=== PATIENT | female | born 1950 | race African-American/Black ===

== ENCOUNTER 2018-09-30 20:04 | Inpatient (IN) | payer OTHER ==
[2018-09-30 20:44] VITALS: BMI 18.4
--- NOTE | 2018-09-30 21:38 | HP ---
COWS - Scale Resting Pulse: 1= MS 81-100 Sweatin=Flushed/Facial Moisture Restless Observation: 0= Sits Still Pupil Size: 0= Normal to Room Light Bone or Joint Aches: 4=Acute Joint/Muscle Pain Runny Nose/ Eye Tearin= Runny Nose/Eyes GI Upset > 30mins: 2= Nausea/Diarrhea (diarrhea x 3) Tremor Observation: 2= Slight Tremor Visible Yawning Observation: 0= None Anxiety or Irritability: 4=Extreme Anxiety Goose Flesh Skin: 0=Smooth Skin COWS Score: 17 CIWA Score Nausea/Vomitin-Mild Nausea/No Vomiting Muscle Tremors: 3 Anxiety: 3 Agitation: 3 Paroxysmal Sweats: 3 Orientation: 2-Disoriented Date<2 days Tacttile Disturbances: 0-None Auditory Disturbances: 0-None Visual Disturbances: 0-None Headache: 2-Mild CIWA-Ar Total Score: 17 - Admission Criteria OASAS Guidelines: Admission for Medically Managed Detox: Requires at least one of the followin. CIWA greater than 12 2. Seizures within the past 24 hours 3. Delirium tremens within the past 24 hours 4. Hallucinations within the past 24 hours 5. Acute intervention needed for co occurring medical disorder 6. Acute intervention needed for co occurring psychiatric disorder 7. Severe withdrawal that cannot be handled at a lower level of care (continued vomiting, continued diarrhea, abnormal vital signs) requiring intravenous medication and/or fluids 8. Admission ROS [facility] Chief Complaint: Heroin and alcohol withdrawal symptoms Allergies/Adverse Reactions: Allergies Allergy/AdvReac Type Severity Reaction Status Date / Time No Known Allergies Allergy Verified 09/30/18 21:09 History of Present Illness: 68 years old female with over 50 years of alcohol and heroin dependence is seeking admission to detox. Patient reports that she has been in multiple detox , last at [facility]. This is her first detox and first admission at [facility]. She has medical history of hypertension, COPD, Asthma, rheumatoid arthritis, anemia, epilepsy, bronchitis and emphysema. She has Psych. history of Bipolar and depression. She denies suicide attempt and suicidal ideation at this time. Patient reports blackout from alcohol use. Exam Limitations: No Limitations - Ebola screening Have you traveled outside of the country in the last 21 days: No (N) Have you had contact with anyone from an Ebola affected area: No Do you have a fever: No - Review of Systems Constitutional: Chills, Malaise, Weakness EENT: reports: Sinus Pressure Respiratory: reports: No Symptoms reported Cardiac: reports: No Symptoms Reported GI: reports: Diarrhea, Poor Appetite, Poor Fluid Intake, Abdominal cramping : reports: No Symptoms Reported Musculoskeletal: reports: Back Pain, Muscle Pain Integumentary: reports: Dryness, Flushing Neuro: reports: Headache, Tremors Endocrine: reports: No Symptoms Reported Hematology: reports: Anemia Psychiatric: reports: Mood/Affect Appropiate, Agitated, Anxious Other Systems: Reviewed and Negative Patient History - Patient Medical History Hx Anemia: Yes Hx Asthma: Yes (Albuterol) Hx Chronic Obstructive Pulmonary Disease (COPD): Yes (Bronchitis, Emphysema - Advair) Hx Cancer: No Hx Cardiac Disorders: No Hx Congestive Heart Failure: No Hx Hypertension: Yes (not on medication) Hx Hypercholesterolemia: No Hx Pacemaker: No HX Cerebrovascular Accident: No Hx Seizures: Yes (Epilepsy, last episode on 09/29/2015) Hx Dementia: No Hx Diabetes: No Hx Gastrointestinal Disorders: No Hx Liver Disease: No Hx Genitourinary Disorders: No Hx Sexually Transmitted Disorders: No Hx Renal Disease (ESRD): No Hx Thyroid Disease: No Hx Human Immunodeficiency Virus (HIV): No (Negative 2015 . Reports her from AIDS) Hx Hepatitis C: No Hx Depression: Yes (None) Hx Suicide Attempt: No (Denies suicidal ideation at this time) Hx Bipolar Disorder: Yes (Not on medic ation) Hx Schizophrenia: No Other Medical History: rheumathoid athritis - not on medication - Patient Surgical History Past Surgical History: No Hx Neurologic Surgery: No Hx Cataract Extraction: No Hx Cardiac Surgery: No Hx Lung Surgery: No Hx Breast Surgery: No Hx Breast Biopsy: No Hx Abdominal Surgery: No Hx Appendectomy: No Hx Cholecystectomy: No Hx Genitourinary Surgery: No Hx Section: No Hx Orthopedic Surgery: No Anesthesia Reaction: No - PPD History Previous Implant?: Yes Documented Results: Negative w/o proof Implanted On Prior R Admission?: No PPD to be Administered?: Yes - Reproductive History Patient is a Female of Child Bearing Age (11 -55 yrs old): Yes LMP comment: MENOPAUSAL Patient : No - Smoking Cessation Smoking history: Current every day smoker Have you smoked in the past 12 months: Yes Aproximately how many cigarettes per day: 4 Hx Chewing Tobacco Use: No Initiated information on smoking cessation: Yes 'Breaking Loose' booklet given: 09/30/18 - Substance & Tx. History Hx Alcohol Use: Yes Hx Substance Use: Yes Substance Use Type: Alcohol, Cocaine, Heroin, Marijuana, Opiates Hx Substance Use Treatment: Yes ([facility]) - Substances abused Alcohol Substance route: Oral Frequency: Daily Amount used: beer- 2 six pack Age of first use: 18 Date of last use: 09/30/18 Heroin Substance route: Inhalation Frequency: Daily Amount used: 3 bags Age of first use: 15 Date of last use: 09/30/18 Marijuana/Hashish Substance route: Smoking Frequency: Daily Amount used: 4 bags Age of first use: 15 Date of last use: 09/29/18 Admission Physical Exam [facility] - Vital Signs Vital Signs: Vital Signs - 24 hr 09/30/18 20:41 Temperature 98.6 F Pulse Rate 82 Respiratory 17 Rate Blood Pressure 108/76 - Diagnostic (1) Hypertension Current Visit: Yes Status: Chronic Qualifiers: Hypertension type: essential hypertension Qualified Code(s): I10 - Essential (primary) hypertension (2) COPD (chronic obstructive pulmonary disease) Current Visit: Yes Status: Acute Qualifiers: Chronic bronchitis type: unspecified (3) Asthma Current Visit: Yes Status: Chronic (4) Anemia Current Visit: Yes Status: Acute Qualifiers: Anemia type: iron deficiency (5) Epilepsy as late effect of cerebrovascular accident (CVA) Current Visit: Yes Status: Chronic (6) Emphysema with chronic bronchitis Current Visit: Yes Status: Chronic (7) Opioid dependence with withdrawal Current Visit: Yes Status: Acute (8) Alcohol dependence with uncomplicated withdrawal Current Visit: Yes Status: Acute (9) Nicotine dependence Current Visit: Yes Status: Acute Qualifiers: Nicotine product type: cigarettes Substance use status: uncomplicated Qualified Code(s): F17.210 - Nicotine dependence, cigarettes, uncomplicated (10) Rheumatoid arthritis Current Visit: Yes Status: Chronic Qualifiers: Laterality: unspecified laterality Cleared for Admission S - Detox or Rehab [facility] Level of Care: Medically Managed Detox Regimen/Protocol: Methadone/Librium Breathalyzer - Breathalyzer Breathalyzer: 0.020 Urine Drug Screen - Test Device Lot number: [id number] Expiration date: 05/04/20 - Control Is test valid?: Yes - Results Drug screen NEGATIVE: No Urine drug screen results: THC-Marijuana, RAJESH-Cocaine, FEN-Fentanyl, MOP-Opiates Inpatient Rehab Admission - Rehab Decision to Admit Inpatient rehab admission?: No
[2018-09-30] MEDS ORDERED: ACETAMINOPHEN 325 MG TABLET (FP) PO PRN ×2 (21:56)
[2018-09-30] MEDS ORDERED: MAG HYDROX/AL HYDROX/SIMETH 30 ML UNIT-DOSE CUP PO PRN (21:56)
[2018-09-30] MEDS ORDERED: hydrOXYzine PAMOATE 25 MG CAPSULE (FP) PO PRN (21:56)
[2018-09-30] MEDS ORDERED: BISMUTH SUBSALICYLATE 524 MG/30 ML UD PO PRN (21:56)
[2018-09-30] MEDS ORDERED: MENTHOL/PHENOL 1 EACH UD MM PRN (21:56)
[2018-09-30] MEDS ORDERED: MAGNESIUM CITRATE 300 ML BOTTLE PO PRN (21:56)
[2018-09-30] MEDS ORDERED: MAGNESIUM HYDROX 2400MG/30ML ORAL SUSPENSION 30 ML CUP PO PRN (21:56)
[2018-09-30] MEDS ORDERED: IBUPROFEN 400 MG TABLET (FP) PO PRN (21:56)
[2018-09-30] MEDS ORDERED: NICOTINE POLACRILEX 2 MG GUM BUC PRN (21:56)
[2018-09-30] MEDS ORDERED: chlordiazePOXIDE HCL 25 MG CAPSULE PO PRN (21:56)
[2018-09-30] MEDS ORDERED: MELATONIN 5 MG TABLETS PO PRN (21:56)
[2018-09-30] MEDS ORDERED: cloNIDine HCL 0.1 MG TABLET PO PRN (22:02)
[2018-09-30] MEDS ORDERED: METHADONE HCL 10 MG TABLET (FOR DETOX USE ONLY) PO ONE (23:00)
[2018-09-30] MEDS: chlordiazePOXIDE HCL 25 MG CAPSULE PO SCH (23:39)
[2018-09-30] MEDS: THIAMINE HCL 100 MG TABLET (FP) PO SCH (23:40)
[2018-10-01] MEDS: chlordiazePOXIDE HCL 25 MG CAPSULE PO SCH ×4 (05:57→22:20)
[2018-10-01] MEDS ORDERED: METHADONE HCL 10 MG TABLET (FOR DETOX USE ONLY) PO ONE (10:00)
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
[2018-10-01 10:07] LABS: HEMATOCRIT 37.3 % (32.4-45.2); HEMOGLOBIN 12.8 GM/dL (10.7-15.3); MCH 32.8 pg (25.7-33.7); MCHC 34.3 g/dl (32.0-36.0); MEAN CELL VOLUME 95.7 fl (80-96); MEAN PLT VOLUME 6.6 fl (7.5-11.1); PLATELET COUNT 311 K/MM3 (134-434); RBC 3.89 M/mm3 (3.60-5.2); RDW 13.1 % (11.6-15.6); WHITE BLOOD COUNT 4.2 K/mm3 (4.0-10.0)
[2018-10-01 10:11] LABS: ALBUMIN 3.2 g/dl (3.4-5.0); ALK PHOS 168 U/L (45-117); ANION GAP 6 MMOL/L (8-16); BILIRUBIN,TOTAL 0.3 mg/dL (0.2-1); BLOOD UREA NITROGEN 11 mg/dL (7-18); CHLORIDE 98 mmol/L (98-107); CO2 28 mmol/L (21-32); CREATININE 0.6 mg/dL (0.55-1.3); GLUCOSE,RANDOM 87 mg/dL (74-106); POTASSIUM 4.4 mmol/L (3.5-5.1); SGOT/AST 36 U/L (15-37); SGPT/ALT 35 U/L (13-61); SODIUM 131 mmol/L (136-145)
[2018-10-01] MEDS: ALBUTEROL SO4 8 GM HFA INHALER IH SCH ×4 (10:36→20:18)
[2018-10-01] MEDS: PRENATAL VITAMINS W/ FOLIC ACID TABLET (FP) PO SCH (10:37)
[2018-10-01] MEDS: ASPIRIN 81 MG CHEWABLE TABLETS PO SCH (10:37)
[2018-10-01] MEDS: LISINOPRIL 10 MG TABLET (FP) PO SCH (10:37)
[2018-10-01] MEDS: NICOTINE 14 MG/24 HOURS TOPICAL PATCH TD SCH (10:37)
[2018-10-01] MEDS: BUDESONIDE/FORMETEROL FUMARATE 80/4.5 mcg INHALER IH SCH ×2 (12:04→22:18)
--- NOTE | 2018-10-01 12:22 | PN ---
[facility] CIWA - CIWA Score Nausea/Vomitin-No Nausea/No Vomiting Muscle Tremors: 4-Moderate,w/Arms Extend Anxiety: 4-Mod. Anxious/Guarded Agitation: 3 Paroxysmal Sweats: 3 Orientation: 0-Oriented Tacttile Disturbances: 0-None Auditory Disturbances: 0-None Visual Disturbances: 0-None Headache: 0-None Present CIWA-Ar Total Score: 14 BHS COWS - Scale Resting Pulse: 0= ID 80 or Below Sweatin= Chills/Flushing Restless Observation: 1= Difficult to Sit Still Pupil Size: 0= Normal to Room Light Bone or Joint Aches: 2= Severe Diffuse Aches Runny Nose/ Eye Tearin= Nasal Congestion GI Upset > 30mins: 0= None Tremor Observation of Outstretched Hands: 2= Slight Tremor Visible Yawning Observation: 2= >3x During Session Anxiety or Irritability: 2=Irritable/Anxious Goose Flesh Skin: 0=Smooth Skin COWS Score: 11 S Progress Note (SOAP) Subjective: sweats shakes interrupted sleep body aches agitation Objective: 10/01/18 12:22 Vital Signs Temperature 98.0 F 10/01/18 09:19 Pulse Rate 70 10/01/18 09:19 Respiratory Rate 18 10/01/18 09:19 Blood Pressure 106/54 L 10/01/18 09:19 O2 Sat by Pulse Oximetry (%) Laboratory Tests 10/01/18 10/01/18 10/01/18 07:00 07:00 07:00 WBC 4.2 RBC 3.89 Hgb 12.8 Hct 37.3 MCV 95.7 MCH 32.8 MCHC 34.3 RDW 13.1 Plt Count 311 MPV 6.6 L Sodium 131 L Potassium 4.4 Chloride 98 Carbon Dioxide 28 Anion Gap 6 L BUN 11 Creatinine 0.6 Creat Clearance w eGFR 99.42 Random Glucose 87 Calcium 9.0 Total Bilirubin 0.3 AST 36 ALT 35 Alkaline Phosphatase 168 H Total Protein 7.0 Albumin 3.2 L RPR Titer Nonreactive aaox3 ambulating no acute distress Assessment: 10/01/18 12:22 withdrawal sx Plan: continue detox increase fluids
[2018-10-01] MEDS: METHOCARBAMOL 500 MG TABLET PO PRN (13:28)
[2018-10-01] MEDS: THIAMINE HCL 100 MG TABLET (FP) PO SCH (22:19)
[2018-10-02] MEDS: chlordiazePOXIDE HCL 25 MG CAPSULE PO SCH ×3 (05:25→17:08)
[2018-10-02] MEDS: METHOCARBAMOL 500 MG TABLET PO PRN (05:27)
[2018-10-02] MEDS: ALBUTEROL SO4 8 GM HFA INHALER IH SCH ×4 (07:43→21:59)
--- NOTE | 2018-10-02 08:33 | EKG ---
Test Reason : Blood Pressure : / mmHG Vent. Rate : 073 BPM Atrial Rate : 073 BPM P-R Int : 176 ms QRS Dur : 076 ms QT Int : 394 ms P-R-T Axes : 071 064 070 degrees QTc Int : 434 ms POOR DATA QUALITY, INTERPRETATION MAY BE ADVERSELY AFFECTED NORMAL SINUS RHYTHM MINIMAL VOLTAGE CRITERIA FOR LVH, MAY BE NORMAL VARIANT BORDERLINE ECG NO PREVIOUS ECGS AVAILABLE Confirmed by MD ANTHONY, COURTNEY ([id number]) on 10/02/2018 8:32:54 AM Referred By: Confirmed By:COURTNEY CRUZ MD
[2018-10-02] MEDS ORDERED: METHADONE HCL 10 MG TABLET (FOR DETOX USE ONLY) PO ONE (10:00)
[2018-10-02] MEDS: ASPIRIN 81 MG CHEWABLE TABLETS PO SCH (10:22)
[2018-10-02] MEDS: LISINOPRIL 10 MG TABLET (FP) PO SCH (10:22)
[2018-10-02] MEDS: PRENATAL VITAMINS W/ FOLIC ACID TABLET (FP) PO SCH (10:23)
[2018-10-02] MEDS: BUDESONIDE/FORMETEROL FUMARATE 80/4.5 mcg INHALER IH SCH ×2 (10:23→21:59)
[2018-10-02] MEDS: NICOTINE 14 MG/24 HOURS TOPICAL PATCH TD SCH (10:23)
[2018-10-02] MEDS ORDERED: BACLOFEN 10 MG TABLET (FP) PO ONE (10:45)
--- NOTE | 2018-10-02 12:10 | PN ---
[facility] CIWA - CIWA Score Nausea/Vomitin-No Nausea/No Vomiting Muscle Tremors: 3 Anxiety: 3 Agitation: 3 Paroxysmal Sweats: 2 Orientation: 0-Oriented Tacttile Disturbances: 0-None Auditory Disturbances: 0-None Visual Disturbances: 0-None Headache: 0-None Present CIWA-Ar Total Score: 11 S COWS - Scale Resting Pulse: 0= MD 80 or Below Sweatin= Chills/Flushing Restless Observation: 1= Difficult to Sit Still Pupil Size: 0= Normal to Room Light Bone or Joint Aches: 2= Severe Diffuse Aches Runny Nose/ Eye Tearin= None GI Upset > 30mins: 0= None Tremor Observation of Outstretched Hands: 1= Tremor [place], Not Seen Yawning Observation: 1= 1-2x During Session Anxiety or Irritability: 1=Feels Anxious/Irritable Goose Flesh Skin: 0=Smooth Skin COWS Score: 7 S Progress Note (SOAP) Subjective: muscle cramping sweats body aches interrupted sleep Objective: 10/02/18 12:09 Vital Signs Temperature 96.9 F L 10/02/18 10:30 Pulse Rate 72 10/02/18 10:30 Respiratory Rate 18 10/02/18 10:30 Blood Pressure 100/53 L 10/02/18 10:30 O2 Sat by Pulse Oximetry (%) Laboratory Tests 09/30/18 10/01/18 10/01/18 20:45 07:00 07:00 WBC 4.2 RBC 3.89 Hgb 12.8 Hct 37.3 MCV 95.7 MCH 32.8 MCHC 34.3 RDW 13.1 Plt Count 311 MPV 6.6 L Sodium 131 L Potassium 4.4 Chloride 98 Carbon Dioxide 28 Anion Gap 6 L BUN 11 Creatinine 0.6 Creat Clearance w eGFR 99.42 Random Glucose 87 Calcium 9.0 Total Bilirubin 0.3 AST 36 ALT 35 Alkaline Phosphatase 168 H Total Protein 7.0 Albumin 3.2 L POC Urine HCG, Qual Negative RPR Titer 10/01/18 07:00 WBC RBC Hgb Hct MCV MCH MCHC RDW Plt Count MPV Sodium Potassium Chloride Carbon Dioxide Anion Gap BUN Creatinine Creat Clearance w eGFR Random Glucose Calcium Total Bilirubin AST ALT Alkaline Phosphatase Total Protein Albumin POC Urine HCG, Qual RPR Titer Nonreactive aaox3 ambulating no acute distress Assessment: 10/02/18 12:10 withdrawal sx Plan: continue detox increase fluids baclofen tid motrin prn
[2018-10-02] MEDS: BACLOFEN 10 MG TABLET (FP) PO SCH ×2 (14:45→22:00)
[2018-10-02] MEDS: chlordiazePOXIDE HCL 10 MG CAPSULE PO SCH (22:00)
[2018-10-02] MEDS: THIAMINE HCL 100 MG TABLET (FP) PO SCH (22:00)
[2018-10-02] MEDS ORDERED: chlordiazePOXIDE HCL 10 MG CAPSULE PO PRN (23:00)
[2018-10-03] MEDS: BACLOFEN 10 MG TABLET (FP) PO SCH ×3 (06:06→22:23)
[2018-10-03] MEDS: chlordiazePOXIDE HCL 10 MG CAPSULE PO SCH ×3 (06:06→16:56)
[2018-10-03] MEDS: ALBUTEROL SO4 8 GM HFA INHALER IH SCH ×4 (09:19→22:23)
[2018-10-03] MEDS ORDERED: METHADONE HCL 10 MG TABLET (FOR DETOX USE ONLY) PO ONE (10:00)
[2018-10-03] MEDS ORDERED: LIDOCAINE 5% TOPICAL PATCH TP ONE (10:09)
[2018-10-03] MEDS: PRENATAL VITAMINS W/ FOLIC ACID TABLET (FP) PO SCH (10:10)
[2018-10-03] MEDS: BUDESONIDE/FORMETEROL FUMARATE 80/4.5 mcg INHALER IH SCH ×2 (10:10→22:23)
[2018-10-03] MEDS: ASPIRIN 81 MG CHEWABLE TABLETS PO SCH (10:10)
[2018-10-03] MEDS: NICOTINE 14 MG/24 HOURS TOPICAL PATCH TD SCH (10:12)
[2018-10-03] MEDS: LISINOPRIL 10 MG TABLET (FP) PO SCH (10:12)
[2018-10-03] MEDS: IBUPROFEN 400 MG TABLET (FP) PO PRN ×2 (10:39→22:24)
[2018-10-03] MEDS: LIDOCAINE PATCH REMOVAL MC SCH (22:23)
[2018-10-03] MEDS: THIAMINE HCL 100 MG TABLET (FP) PO SCH (22:24)
[2018-10-03] MEDS ORDERED: chlordiazePOXIDE HCL 10 MG CAPSULE PO SCH (23:00)
[2018-10-04] MEDS ORDERED: METHADONE HCL 5 MG TABLET (FOR DETOX USE ONLY) PO ONE (06:00)
[2018-10-04] MEDS: BACLOFEN 10 MG TABLET (FP) PO SCH (06:07)
[2018-10-04] MEDS: ALBUTEROL SO4 8 GM HFA INHALER IH SCH ×4 (07:44→21:15)
[2018-10-04] MEDS: PRENATAL VITAMINS W/ FOLIC ACID TABLET (FP) PO SCH (09:55)
[2018-10-04] MEDS: ASPIRIN 81 MG CHEWABLE TABLETS PO SCH (09:55)
[2018-10-04] MEDS: LIDOCAINE 5% TOPICAL PATCH TP SCH (09:55)
[2018-10-04] MEDS: LISINOPRIL 10 MG TABLET (FP) PO SCH (09:56)
[2018-10-04] MEDS: BUDESONIDE/FORMETEROL FUMARATE 80/4.5 mcg INHALER IH SCH ×2 (09:56→22:01)
[2018-10-04] MEDS: NICOTINE 14 MG/24 HOURS TOPICAL PATCH TD SCH (09:56)
--- NOTE | 2018-10-04 10:28 | PN ---
S Progress Note Note: pt was lying in bed appearing tired/sluggish; stating the medication is making her too sleepy. libirum was discontinued pt will stay on the unit until tomorrow for observation. Pt will continue with MVI and hydration pt should be ready for rehab as per request tomorrow as scheduled.
--- NOTE | 2018-10-04 10:32 | PN ---
[facility] CIWA - CIWA Score Nausea/Vomitin-No Nausea/No Vomiting Muscle Tremors: 2 Anxiety: 0-No Anxiety, at Ease Agitation: 1-Slight > Activity Paroxysmal Sweats: 1-Minimal Palms Moist Orientation: 0-Oriented Tacttile Disturbances: 0-None Auditory Disturbances: 0-None Visual Disturbances: 0-None Headache: 0-None Present CIWA-Ar Total Score: 4 S COWS - Scale Resting Pulse: 0= SD 80 or Below Sweatin= Chills/Flushing Restless Observation: 0= Sits Still Pupil Size: 0= Normal to Room Light Bone or Joint Aches: 1= Mild Discomfort Runny Nose/ Eye Tearin= None GI Upset > 30mins: 0= None Tremor Observation of Outstretched Hands: 0= None Yawning Observation: 0= None Anxiety or Irritability: 1=Feels Anxious/Irritable Goose Flesh Skin: 0=Smooth Skin COWS Score: 3 BHS Progress Note (SOAP) Subjective: sweats tired Objective: 10/04/18 10:31 Vital Signs Temperature 97.3 F L 10/04/18 10:07 Pulse Rate 79 10/04/18 10:07 Respiratory Rate 16 10/04/18 10:07 Blood Pressure 114/68 10/04/18 10:07 O2 Sat by Pulse Oximetry (%) aaox3 ambulating no acute distress Assessment: 10/04/18 10:31 mild to no s/s of withdrawal sx Plan: libirum discontinued increase fluids d/c in am
[2018-10-04] MEDS: LIDOCAINE PATCH REMOVAL MC SCH (21:14)
[2018-10-04] MEDS: IBUPROFEN 400 MG TABLET (FP) PO PRN (22:02)
[2018-10-04] MEDS: THIAMINE HCL 100 MG TABLET (FP) PO SCH (22:02)
[2018-10-05] MEDS: ALBUTEROL SO4 8 GM HFA INHALER IH SCH ×2 (07:41→13:11)
[2018-10-05] MEDS: PRENATAL VITAMINS W/ FOLIC ACID TABLET (FP) PO SCH (10:09)
[2018-10-05] MEDS: BUDESONIDE/FORMETEROL FUMARATE 80/4.5 mcg INHALER IH SCH (10:09)
[2018-10-05] MEDS: ASPIRIN 81 MG CHEWABLE TABLETS PO SCH (10:09)
[2018-10-05] MEDS: NICOTINE 14 MG/24 HOURS TOPICAL PATCH TD SCH (10:10)
[2018-10-05] MEDS: LIDOCAINE 5% TOPICAL PATCH TP SCH (10:10)
[2018-10-05] MEDS: LISINOPRIL 10 MG TABLET (FP) PO SCH (13:45)
[2018-10-05 14:28] VITALS: BP 84/53; PULSE 82; TEMP 99.7
--- NOTE | 2018-10-05 19:30 | DS ---
[facility] Detox Discharge Summary Admission Date: 09/30/18 Discharge Date: 10/05/18 - History Present History: Alcohol Dependence, Cannabis Dependence, Opioid Dependence Additional Comments: PATIENT GOING HOME TO ATTEND TO PERSONAL MATTERS FOR THE TIME BEING, THEN WILL APPLY ON HER OWN TO [facility] ON HER OWN WITHIN THE NEXT FEW DAYS. PATIENT DECLINED OFFER OF MEDICATION PRESCRIPTION FOR HOME MEDICATION AT TIME OF DISCHARGE FROM DETOX, NOTING THAT HE CURRENTLY HAS ADEQUATE SUPPLIES OF ALL PRESCRIBED HOME MEDICATIONS WITH HER PROPERTY THAT SHE BROUGHT WITH HER A TIME OF ADMISSION TO DETOX UNIT. PATIENT WAS DISCHARGED FROM DETOX UNIT IN STABLE MEDICAL CONDITION. Pertinent Past History: HTN, Rheumatoid Arthritis, Asthma, C.O.P.D. (Chronic Bronchitis, Chronic Emphysema), History Of Anemia, Bipolar Disorder, Depression, History Of Epilepsy (Due to history Of CVA), Nicotine Dependence, Dementia, History Of Alcohol-Related Seizure. - Physical Exam Results Vital Signs: Vital Signs Temperature 99.7 F H 10/05/18 14:27 Pulse Rate 82 10/05/18 14:27 Respiratory Rate 16 10/05/18 14:27 Blood Pressure 84/53 L 10/05/18 14:27 O2 Sat by Pulse Oximetry (%) Pertinent Admission Physical Exam Findings: WITHDRAWAL SYMPTOMS. Laboratory Tests 09/30/18 10/01/18 10/01/18 20:45 07:00 07:00 WBC 4.2 RBC 3.89 Hgb 12.8 Hct 37.3 MCV 95.7 MCH 32.8 MCHC 34.3 RDW 13.1 Plt Count 311 MPV 6.6 L Sodium 131 L Potassium 4.4 Chloride 98 Carbon Dioxide 28 Anion Gap 6 L BUN 11 Creatinine 0.6 Creat Clearance w eGFR 99.42 Random Glucose 87 Calcium 9.0 Total Bilirubin 0.3 AST 36 ALT 35 Alkaline Phosphatase 168 H Total Protein 7.0 Albumin 3.2 L POC Urine HCG, Qual Negative RPR Titer 10/01/18 07:00 WBC RBC Hgb Hct MCV MCH MCHC RDW Plt Count MPV Sodium Potassium Chloride Carbon Dioxide Anion Gap BUN Creatinine Creat Clearance w eGFR Random Glucose Calcium Total Bilirubin AST ALT Alkaline Phosphatase Total Protein Albumin POC Urine HCG, Qual RPR Titer Nonreactive LABS NOTED. - Treatment Hospital Course: Detox Protocol Followed, Detoxed Safely, Responded well, Discharged Condition Good, Rehab Referral Accepted Patient has Accepted a Rehab Referral to: PATIENT WILL APPLY TO [facility] WITHIN THE NEXT FEW DAYS. - Medication Discharge Medications: Ambulatory Orders Albuterol Sulfate Inhaler - [Ventolin Hfa Inhaler -] 1 - 2 inh PO QID 09/30/18 Aspirin [ASA -] 81 mg PO DAILY 09/30/18 Fluticasone/Salmeterol [Advair 250-50 Diskus] 1 each IH BID 09/30/18 Lisinopril [Prinivil -] 10 mg PO DAILY 09/30/18 Naproxen [Naprosyn -] 500 mg PO BID 09/30/18 - Diagnosis (1) Alcohol dependence with uncomplicated withdrawal Status: Acute (2) COPD (chronic obstructive pulmonary disease) Status: Acute Qualifiers: COPD type: unspecified COPD Qualified Code(s): J44.9 - Chronic obstructive pulmonary disease, unspecified (3) Opioid dependence with withdrawal Status: Acute (4) Anemia Status: Chronic Qualifiers: Anemia type: iron deficiency Iron deficiency anemia type: unspecified iron deficiency Qualified Code(s): D50.9 - Iron deficiency anemia, unspecified (5) Asthma Status: Chronic Qualifiers: Asthma severity: unspecified severity Asthma persistence: unspecified Asthma complication type: uncomplicated Qualified Code(s): J45.909 - Unspecified asthma, uncomplicated (6) Emphysema with chronic bronchitis Status: Chronic (7) Epilepsy as late effect of cerebrovascular accident (CVA) Status: Chronic (8) Hypertension Status: Chronic Qualifiers: Hypertension type: essential hypertension Qualified Code(s): I10 - Essential (primary) hypertension (9) Nicotine dependence Status: Chronic Qualifiers: Nicotine product type: cigarettes Substance use status: uncomplicated Qualified Code(s): F17.210 - Nicotine dependence, cigarettes, uncomplicated (10) Rheumatoid arthritis Status: Chronic Qualifiers: Rheumatoid arthritis location: unspecified site Rheumatoid factor presence : unspecified presence Qualified Code(s): M06.9 - Rheumatoid arthritis, unspecified (11) Substance-induced sleep disorder Status: Acute (12) Dementia Status: Chronic Qualifiers: Dementia type: unspecified type Dementia behavioral disturbance: without behavioral disturbance Qualified Code(s): F03.90 - Unspecified dementia without behavioral disturbance (13) Alcohol related seizure Status: Ruled-out (14) Cannabis dependence Status: Acute - AMA Did Patient Leave Against Medical Advice: No
== END 2018-10-05 14:35 | disposition home or self-care (01) | DRG 897 ==
LOC: YASAS 20:04 → Y6N 21:45
PROVIDERS: ADMIT Surgery; ATTEND Surgery
PROC: HZ2ZZZZ Detoxification Services for Substance Abuse Treatment (ICD-10-PCS; principal; 2018-09-30)
DX: F11.23 Opioid dependence with withdrawal (principal); F10.230 Alcohol dependence with withdrawal, uncomplicated; F12.20 Cannabis dependence, uncomplicated; F17.210 Nicotine dependence, cigarettes, uncomplicated; F31.9 Bipolar disorder, unspecified; F03.90 Unspecified dementia, unspecified severity, without behavioral disturbance, psychotic disturbance, mood disturbance, and anxiety; J44.9 Chronic obstructive pulmonary disease, unspecified; J45.909 Unspecified asthma, uncomplicated; M06.9 Rheumatoid arthritis, unspecified; Z86.69 Personal history of other diseases of the nervous system and sense organs; Z59.0 Homelessness
CPT/HCPCS: 36415; 80053; 81025; 85027; 86593; 93005; 93010; J0475